=== PATIENT | female | born 2005 | race Caucasian/White ===

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

== ENCOUNTER 2024-02-26 11:08 | Outpatient (CLI) | payer BC, SELFPAY ==
[2024-02-26 12:07] LABS: Basophils Absolute Auto 0.02 K/mm3 (0.00-0.10); Basophils Percent Auto 0.3 % (0.0-1.0); Eosinophils Absolute Auto 0.06 K/mm3 (0.02-0.50); Eosinophils Percent Auto 0.9 % (1.0-6.0); Hematocrit 39.6 % (35.0-49.0); Hemoglobin 13.2 g/dL (12.0-15.0); Immature Granulocyte Absolute 0.03 K/mm3 (0.00-0.00); Immature Granulocyte Percent A 0.5 % (0.0-0.0); Lymphocytes Absolute Auto 1.71 K/mm3 (1.10-4.50); Mean Corpuscular HGB Conc 33.3 g/dL (32-36); Mean Corpuscular Hemoglobin 29.4 pg (27.0-31.0); Mean Corpuscular Volume 88.2 fL (78.0-102.0); Mean Platelet Volume 11.4 fl (9.2-11.8); Monocytes Absolute Auto 0.59 K/mm3 (0.10-0.90); Monocytes Percent Auto 9.3 % (2.0-11.0); Neutrophils Absolute Auto 3.92 K/mm3 (1.70-7.20); Platelet Count Result 256 K/mm3 (150-420); Red Blood Count 4.49 M/mm3 (4.20-5.40); Red Cell Distribution Width 12.8 % (11.6-14.4); White Blood Count 6.3 K/mm3 (4.8-10.8)
[2024-02-26 12:25] LABS: Alanine Aminotransferase 48 U/L (14-59); Albumin Level 3.7 g/dL (3.4-5.0); Alkaline Phosphatase 67 U/L (50-130); Anion Gap 10 mmol/L (4-12); Aspartate Amino Transferase 22 U/L (15-37); Bilirubin,Total 0.4 mg/dL (0.00-1.00); Blood Urea Nitrogen 11 mg/dL (7-18); Calcium 9.1 mg/dL (8.5-10.1); Carbon Dioxide 26 mmol/L (21-32); Chloride 106 mmol/L (98-108); Cholesterol 154 mg/dL (0-200); Estimated Glomerular Filt Rate > 60; Glucose 94 mg/dL (70-99); HDL Direct 44 mg/dL (40-60); LDL Cholesterol Calculated 97 mg/dL (<130); Osmolality Calculated 293 mOsm/kg (285-295); Potassium 3.8 mmol/L (3.5-5.1); Sodium 142 mmol/L (136-145); Total Protein 7.4 g/dL (6.4-8.2); Triglycerides 64 mg/dL (0-150)
[2024-02-26 12:26] LABS: Thyroid Stimulating Hormone Reflex 3.91 u/IU/mL (0.36-3.74)
[2024-02-26 12:27] LABS: Free T4 Free Thyroxine Reflex 1.03 ng/dL (0.76-1.46)
[2024-02-29 14:53] LABS: Insulin Level Total 24.3 uIU/mL
== END 2024-02-26 11:09 | disposition home or self-care (01) ==
LOC: CHSLAB 11:09
PROVIDERS: PCP Nurse Practitioner Family; Visit Provider Nurse Practitioner Family
DX: Z00.00 Encounter for general adult medical examination without abnormal findings (principal); Z83.3 Family history of diabetes mellitus; R53.83 Other fatigue
CPT/HCPCS: 36415; 80053; 80061; 83036; 83525; 84439; 84443; 85025

== ENCOUNTER 2024-11-01 15:34 | Outpatient (CLI) | payer BC, SELFPAY ==
--- OUTSIDE RECORDS SUMMARY | 2024-11-01 15:40 | XMS_ITS | Clinical Summary ---
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 Gender Identity Not on file Sexual Orientation Not on file Plan of Treatment Health Maintenance Due Date Last Done Comments Annual Physical 12/19/2007 HPV Vaccines (1 - 3-dose series) 12/19/2019 Meningococcal B Vaccine (1 o f 2 - Standard) 2020 Hepatitis C 2022 DTaP, Tdap and Td Vaccines ( 1 - Tdap) 12/19/2023 Hepatitis B Vaccines (1 of 3 - 19+ 3-dose series) 12/19/2023 COVID-19 Vaccine ( - 2023-2 5 season) 2024 Influenza Adult (#1) 2024 Meningococcal Vaccine Aged Out No james nancy eligible based on patient's age to complete this topic Pneumococcal Vaccine: Pediat rics (0 to 5 Years) and At-Risk Patients (6 to 64 Years) Aged Out No longer eligible b ased on patient's age to complete this topic RSV Immunizations Under 20 Months Aged Out No longer eligible based on patient's age to complete this topic
--- OUTSIDE RECORDS SUMMARY | 2024-11-01 15:40 | XMS_ITS | Patient Health Summary ---
Author Organization [facility] Address [address] [place] [address] Care Team Providers Care Rehabilitation Aide/Scheduler Name Role Phone Olaf Shane MD Primary Care Provider [phone] Note from [facility],non-owned Affiliates and Associated Physician Practices is amultiple site organization consisting of ambulatory clinics and hospital sitesin [place], [place], [place] and [place]. This disclosure is being madepursuant to the Care Everywhere program and may not contain all information available regarding this patient. Last updated 18.[facility] Allergies No known active allergies Medications Be aware that medications may not be up to date on this document. Always verify current medications with the patient. No known medications Active Problems Problem Noted Date Diagnosed Date Other closed fractures of distal end of radius ( alone) 08/28/2013 Abdominal pain, generalized 03/10/2012 Social History Tobacco Use Types Packs/Day Years Used Date Smoking Tobacco: Never Assessed Sex and Gender Information Value Date Recorded Sex Assigned at Not on file Gender Identity Not on file Sexual Orientation Not on file Last Filed Vital Signs Vital Sign Reading Time Taken Comments Blood Pressure - - Pulse - - Temperature - - Respiratory Rate - - Oxygen Saturation - - Inhaled Oxygen Concentration - - Weight 32.3 kg (71 lb 3.3 oz) 03/10/2012 9:10 AM CDT Height 123.7 cm (4' 0.7 ) 03/10/2012 9:10 AM CDT Body Mass Index 21.11 03/10/2012 9:10 AM CDT Body Mass Index Percentile 96.42% 03/10/2012 9:1 0 AM CDT Growth Chart: CDC (Girls, 2- 20 Years) Procedures * XR WRIST LEFT 2VW(Performed 08/28/2013) Performed for Wrist injury * IMAGING/RADIOLOGY/XRAY RESULTS ORDER(Performed 10/23/2012) * TISSUE TRANSGLUTAMINASE AB IGA(Performed 03/10/2012) Performed for Abdominal pain, generalized * LIPASE BLOOD(Performed 03/10/2012) Performed for Abdominal pain, generalized * IGA BLOOD(Performed 03/10/2012) Performed for Abdominal pain, generalized * C-REACTIVE PROTEIN(Performed 03/10/2012) Performed for Abdominal pain, generalized * COMPREHENSIVE METABOLIC PANEL(Performed 03/10/2012) Performed for Abdominal pain, generalized * CBC W AUTO DIFFERENTIAL(Performed 03/10/2012) Performed for Abdominal pain, generalized * AMYLASE BLOOD(Performed 03/10/2012) Performed for Abdominal pain, generalized Results * XR WRIST 2 VW LEFT (08/28/2013 1:37 PM STUNT PERFORMER) Anatomical Region Laterality Modality Wrist / Hand Radiographic Danna ging 08/28/2013 2:13 PM STUNT PERFORMER Impressions 08/28/2013 3:54 PM STUNT PERFORMER Healing distal left radius buckle fracture. D: Joel Tariq MD. Dictated by Joel Tariq on 08/28/2013 2:51 PM Chsa Akers, have personally reviewed the images and I agree with this report. Narrative 08/28/2013 3:54 PM STUNT PERFORMER EXAM: Left wrist, PA and lateral views DATE: 08/28/2013 HISTORY: Wrist injury COMPARISON: No prior studies are available for comparison. FINDINGS: There is a healing buckle fracture of the distal left radius in near anatomic alignment. There is other acute fracture. There are no other osseous abnormalities. There is no soft tissue swelling. Procedure Note Chas Back MD - 08/28/2013 EXAM: Left wrist, PA and lateral views DATE: 08/28/2013 HISTORY: Wrist injury COMPARISON: No prior studies are available for comparison. FINDINGS: There is a healing buckle fracture of the distal left radius in near anatomic alignment. There is other acute fracture. There are no other osseous abnormalities. There is no soft tissue swelling. IMPRESSION Healing distal left radius buckle fracture. D: Joel Tariq MD. Dictated by Joel Tariq on 08/28/2013 2:51 PM Chas Akers, have personally reviewed the images and I agree with this report. Nadir Dickinson PA-C DIAGNOSTIC IMAGING O RDERABLES * IMAGING/RADIOLOGY/XRAY RESULTS ORDER (10/23/2012 1:38 PM STUNT PERFORMER) Anatomical Region Laterality Modality Other Narrative 10/23/2012 1:38 PM STUNT PERFORMER Procedure Note Document, Scanned - 10/23/2012 1:38 PM CST Transcriptions Document, Scanned - 10/23/2012 1:38 PM CST Scanned Document IMAGING * TISSUE TRANSGLUTAMINASE AB IGA (03/10/2012 10:21 AM CDT) Pathologist [facility] TTG Antibody IgA <3 <5 U/mL [facility] Comment: Reference range: <5 U/mL Negative 5-8 U/mL Equivocal >8 U/mL Positive Test Performed at: [facility]/[address] [address] RENAY POSADAS MD Blood specimen (specimen) BLOOD SPECIMEN / Unknown 03/10/2012 10:21 AM CDT 03/10/2012 10:22 AM CDT Xochilt Li APRN-[facility] - SEROLOGY OR DERABLES Performing Organization Address [facility] de Phone Number [employer] [address] [place] [address] * C-REACTIVE PROTEIN (03/10/2012 10:21 AM CDT) Pathologist [facility] C-Reactive Protein <0.10 <0.80 mg/dL [facility] Comment: Verified by repeat analysis. Please be advised that patients taking Carboxypenicillins may exhibit falsely decreased C-Reactive Protein levels due to an analytical interference in this assay. Test Performed at: [facility] [address] [place] [address] JOSÉ MANUEL SHELL DO,MPH Blood specimen (specimen) BLOOD SPECIMEN / Unknown 03/10/2012 10:21 AM CDT 03/10/2012 10:22 AM CDT Xochilt Li APRN-HOME HEALTH NURSE LICENSED PRACTICAL LAB - CHEMISTRY O RDERABLES Performing Organization Address [facility] de Phone Number [employer] [address] [place] [address] * CBC W AUTO DIFFERENTIAL (03/10/2012 10:21 AM CDT) Pathologist [facility] White Blood Cell Count 5.7 4.5 - 13.5 Thousand/u L [facility] RBC 4.25 4.00 - 5.20 Million/uL [facility] Hemoglobin 12.5 11.5 - 15.5 g/dL [facility] Hematocrit 37.5 35.0 - 45.0 % [facility] MCV 88.1 77.0 - 95.0 fL [facility] MCH 29.4 25.0 - 33.0 pg [facility] MCHC 33.3 31.0 - 36.0 g/dL [facility] RDW 14.0 11.0 - 15.0 % [facility] Platelet Count 281 140 - 400 Thousand/u L [facility] Neutrophil Absolute 3032 1500 - 8000 cells/uL [facility] Lymphocytes Absolute 2035 1500 - 6500 cells/uL [facility] Absolute Monocytes 570 200 - 900 cells/uL [facility] Eosinophils Absolute 46 15 - 500 cells/uL [facility] Basophils Absolute 17 0 - 200 cells/uL [facility] Granulocytes % 53.2 % [facility] Lymphocytes % 35.7 % [facility] Monocytes % 10.0 % [facility] Eosinophils % 0.8 % [facility] Basophils % 0.3 % [facility] Comment: Test Performed at: [facility] [address] [place] [address] JOSÉ MANUEL SHELL DO,MPH Blood specimen (specimen) BLOOD SPECIMEN / Unknown 03/10/2012 10:21 AM CDT 03/10/2012 10:22 AM CDT Xochilt Li PARALEGAL SECRETARY-HOME HEALTH NURSE LICENSED PRACTICAL LAB - HEMATOLOGY ORDERABLES [facility] [address] [place] [address] * (ABNORMAL) COMPREHENSIVE METABOLIC PANEL (03/10/2012 10:21 AM CDT) [facility] Glucose 84 65 - 99 mg/dL [facility] Comment: Fasting reference interval BUN 16 7 - 20 mg/dL [facility] Creatinine 0.47 0.20 - 0.73 mg/dL [facility] Comment: Patient is <18 years old. Unable to calculate eGFR. BUN/Creatinine Ratio NOT APPLICABLE 6 - 22 (calc) [facility] Sodium 141 135 - 146 mmol/L [facility] Potassium 4.4 3.8 - 5.1 mmol/L [facility] Chloride 107 98 - 110 mmol/L [facility] CO2 23 21 - 33 mmol/L [facility] Calcium 9.8 8.9 - 10.4 mg/dL [facility] Protein Total 6.5 6.3 - 8.2 g/dL [facility] Albumin 4.6 3.6 - 5.1 g/dL [facility] Globulin Total 1.9(L) 2.0 - 3.8 g/dL (calc) [facility] Albumin/Globuli n Ratio 2.4(H) 1.0 - 2.1 (calc) [facility] Bilirubin Total 0.3 0.2 - 0.8 mg/dL [facility] Alkaline Phosphatase 276 184 - 415 U/L [facility] AST 24 12 - 32 U/L [facility] ALT 18 8 - 24 U/L [facility] Comment: Test Performed at: [place] [address] JOSÉ MANUEL SHELL DO,MPH Blood specimen (specimen) BLOOD SPECIMEN / Unknown 03/10/2012 10:21 AM CDT 03/10/2012 10:22 AM CDT [facility] RDERABLES Performing Organization Address [facility] de Phone Number [facility] [address] [place] [address] * LIPASE BLOOD (03/10/2012 10:21 AM CDT) Lipase 30 7 - 60 U/L [facility] Comment: REPORT COMMENT: FASTING Test Performed at: [place] [address] JOSÉ MANUEL SHELL DO,MPH Blood specimen (specimen) BLOOD SPECIMEN / Unknown 03/10/2012 10:21 AM CDT 03/10/2012 10:22 AM CDT [facility]ilt [facility] - CHEMISTRY O RDERABLES Performing Organization Address [facility] de Phone Number [facility] [id number] [place] [address] * AMYLASE BLOOD (03/10/2012 10:21 AM CDT) Amylase 35 21 - 101 U/L [facility] Comment: Test Performed at: [facility] [place] [address] JOSÉ MANUEL SHELL DO,MPH Blood specimen (specimen) BLOOD SPECIMEN / Unknown 03/10/2012 10:21 AM CDT 03/10/2012 10:22 AM CDT Xochilt Ortega Guillermo PARALEGAL SECRETARY-HOME HEALTH NURSE LICENSED PRACTICAL LAB - CHEMISTRY O RDERABLES Performing Organization Address [facility] de Phone Number [facility] [address] [place] [address] * IGA BLOOD (03/10/2012 10:21 AM CDT) IgA 67 41 - 368 mg/dL [facility] Comment: Test Performed at: [facility] [address] [facility] [place] [address] JOSÉ MANUEL SHELL DO,MPH Blood specimen (specimen) BLOOD SPECIMEN / Unknown 03/10/2012 10:21 AM CDT 03/10/2012 10:22 AM CDT Xochilt Li PARALEGAL SECRETARY-HOME HEALTH NURSE LICENSED PRACTICAL LAB - CHEMISTRY O RDERABLES Performing Organization Address [facility] de Phone Number [facility] [address] [place] [phone] Care Teams Rehabilitation Aide/Scheduler Relationship Specialty Start Date End Date Olaf Shane [place] [address] PCP - General Pediatrics 08/28/13
--- OUTSIDE RECORDS SUMMARY | 2024-11-01 15:40 | XMS_ITS | Referral Summary ---
Author Organization [facility] [employer] Address [address] [place] [address] Care Team Providers Care Billposting Supervisor Name Role Phone Olaf Shane MD Primary Care Provider [phone] Source Comments [facility] [employer],non-owned Affiliates and Associated Physician Practices is amultiple site organization consisting of ambulatory clinics and hospital sitesin [place], [place], [place] and [place]. This disclosure is being madepursuant to the Care Everywhere program and may not contain all information available regarding this patient. Last updated 18.[employer] [facility] Allergies No known active allergies Medications Be [...] Height 123.7 cm (4' 0.7 ) 03/10/2012 9 :10 AM CDT Body Mass Index 21.11 03/10/2012 9:10 AM CDT Body Mass Index Percentile 96.42% 03/10/2012 9:1 0 AM CDT Growth Chart: [facility] (Girls, 2- 20 Years) Plan of Treatment Not on file Care Teams Billposting Supervisor Relationship Specialty Start Date End Date Olaf Shane MD [address] [place] [id number] PCP - General Pediatrics 08/28/13
--- OUTSIDE RECORDS SUMMARY | 2024-11-01 15:40 | XMS_ITS | Clinical Summary ---
Author Organization [facility] [email or web address] Address [address] [place] [address] Care Team Providers Care Masticator Name Role Phone Olaf Shane MD Primary Care Provider [phone] Source Comments [facility] [email or web address],non-owned Affiliates and Associated Physician Practices is amultiple site organization consisting of ambulatory clinics and hospital sitesin [place], [place], [place] and [place]. This disclosure is being madepursuant to the Care Everywhere program and may not contain all information available regarding this patient. Last updated 18.[email or web address] Allergies No known active allergies Medications Be [...] Growth Chart: CDC (Girls, 2- 20 Years) Plan of Treatment Health Maintenance Due Date Last Done Comments HIV SCREENING 12/19/2019 HPV VACCINE (1 - 3-dose series) 12/19/2019 CHLAMYDIA/GONORRHEA SCREENING 2020 MENINGOCOCCAL (Group B) VACC INE (1 of 2 - Standard) 2020 HEPATITIS C SCREENING 12/14/2022 DTAP/TDAP/TD VACCINES (1 - Tdap) 12/19/2023 HEPATITIS B VACCINE (1 of 3 - 19+ 3-dose series) 12/19/2023 COVID-19 VACCINE (1 - 2023-2 5 season) 2024 INFLUENZA VACCINE (#1) 2024 DEPRESSION SCREENING 09/13/2024 ZOSTER VACCINE (1 of 2) 2054 HIB VACCINE Aged Out No longer eligi ble based on patient's age to complete this topic MENINGOCOCCAL VACCINE Aged Out No james nancy eligible based on patient's age to complete this topic PNEUMOCOCCAL VACCINE Aged Out No long er eligible based on patient's age to complete this topic Care Teams Masticator Relationship Specialty Start Date End Date Olaf Shane MD [address] [place] [address] PCP - General Pediatrics 08/28/13
[2024-11-01 16:20] LABS: Thyroid Stimulating Hormone Reflex 4.52 u/IU/mL (0.36-3.74)
[2024-11-01 16:25] LABS: Ferritin 50 ng/mL (8-252); Iron 99 ug/dL (50-170); Percent Iron Saturation 25 % (12-57)
[2024-11-01 17:00] LABS: Free T4 Free Thyroxine Reflex 0.98 ng/dL (0.76-1.46)
[2024-11-03 03:28] LABS: Vitamin D 25 Hydroxy 8 ng/mL (30-100)
== END 2024-11-01 15:35 | disposition home or self-care (01) ==
LOC: CHSLAB 15:38
PROVIDERS: PCP Nurse Practitioner Family; Visit Provider Nurse Practitioner Family
DX: R79.89 Other specified abnormal findings of blood chemistry (principal); D64.9 Anemia, unspecified; R53.83 Other fatigue
CPT/HCPCS: 36415; 82306; 82728; 83540; 83550; 84439; 84443

== ENCOUNTER 2025-01-05 11:33 | Outpatient (CLI) | payer BC, SELFPAY ==
--- OUTSIDE RECORDS SUMMARY | 2025-01-05 11:51 | XMS_ITS | Clinical Summary ---
Author Organization [facility] [employer] Address [address] [place] [address] Care Team Providers Care Vacuum Cooker Operator Name Role Phone Olaf Shane MD Primary Care Provider [phone] Source Comments [facility] [employer],non-owned Affiliates and Associated Physician Practices is amultiple site organization consisting of ambulatory clinics and hospital sitesin [place], [place], [place] and [place]. This disclosure is being madepursuant to the Care Everywhere program and may not contain all information available regarding this patient. Last updated 18.[employer] Allergies No known active allergies Medications * Be aware that medications may not be up to date on this document. Alwaysverify current medications with the patient. 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 Gender Identity Not on file Sexual Orientation [...] Mass Index 21.11 03/10/2012 9:10 AM CDT Plan of Treatment Health Maintenance Due Date Last Done Comments HIV SCREENING 12/19/2019 HPV VACCINE (1 - 3-dose series) 12/19/2019 CHLAMYDIA/GONORRHEA SCREENING 2020 MENINGOCOCCAL (Group B) VACC INE SHARED DECISION-MAKING (1 of 2 - Standard) 2020 HEPATITIS C SCREENING 12/14/2022 DTAP/TDAP/TD VACCINES (1 - Tdap) 12/19/2023 HEPATITIS B VACCINE (1 of 3 - 19+ 3-dose series) 12/19/2023 COVID-19 VACCINE (1 - 2023-2 5 season) 2024 DEPRESSION SCREENING 09/13/2024 INFLUENZA VACCINE (Season Ended) 2025 ZOSTER VACCINE (1 of 2) 2054 HIB VACCINE Aged Out No longer eligi ble based on patient's age to complete this topic MENINGOCOCCAL GROUPS A/C/Y/W VACCINE Aged Out No longer eligible b ased on patient's age to complete this topic PNEUMOCOCCAL VACCINE Aged Out No long er eligible based on patient's age to complete this topic Insurance [facility] Care Teams Vacuum Cooker Operator Relationship Specialty Start Date End Date Olaf Shane MD [address] [place] [phone] PCP - General Pediatrics 08/28/13
--- OUTSIDE RECORDS SUMMARY | 2025-01-05 11:51 | XMS_ITS | Clinical Summary ---
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
[2025-01-05 13:21] LABS: Thyroid Stimulating Hormone 3.33 uIU/mL (0.36-3.74)
[2025-01-06 06:53] LABS: Vitamin D 25 Hydroxy 56 ng/mL (30-100)
== END 2025-01-05 11:34 | disposition home or self-care (01) ==
LOC: CHSLAB 11:34
PROVIDERS: PCP Nurse Practitioner Family; Visit Provider Nurse Practitioner Family
DX: E55.9 Vitamin D deficiency, unspecified (principal); R53.83 Other fatigue; E03.8 Other specified hypothyroidism
CPT/HCPCS: 36415; 82306; 84443

== ENCOUNTER 2025-01-23 12:54 | Outpatient (RCR) | payer BC, SELFPAY ==
[2025-01-23 13:01] VITALS: BMI 40.1
== END 2025-04-11 10:54 | disposition home or self-care (01) ==
LOC: ANHDMC 12:54
PROVIDERS: PCP Nurse Practitioner Family; Visit Provider Nurse Practitioner Family
DX: Z68.39 Body mass index [BMI] 39.0-39.9, adult (principal); Z71.3 Dietary counseling and surveillance
CPT/HCPCS: 97802

== ENCOUNTER 2025-04-25 13:00 | Outpatient (CLI) | payer BC, SELFPAY ==
--- OUTSIDE RECORDS SUMMARY | 2025-04-25 13:05 | XMS_ITS | Clinical Summary ---
Author Organization [facility] [employer] Address [address] [place] [address] Care Team Providers Care Technology Intern Name Role Phone Olaf Shane MD Primary Care Provider [phone] Source Comments [facility] [employer],non-owned Affiliates and Associated Physician Practices is amultiple site organization consisting of ambulatory clinics and hospital sitesin [place], [place], [place] and [place]. This disclosure is being madepursuant to the Care Everywhere program and may not contain all information available regarding this patient. 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 Gender Identity Not on file Sexual Orientation Not on file Last Filed Vital Signs Vital Sign Reading Time Taken Comments Blood Pressure - - Pulse - - Temperature - - Respiratory Rate - - Oxygen Saturation - - Inhaled Oxygen Concentration - - Weight 32.3 kg (71 lb 3.3 oz) 03/10/2012 9:10 AM CDT Height 123.7 cm (4' 0.7) 03/10/2012 9:10 AM CDT Body Mass Index [...] season) 2024 DEPRESSION SCREENING 09/13/2024 INFLUENZA VACCINE (#1) 2025 ZOSTER VACCINE (1 of 2) 2054 HIB VACCINE Aged Out No longer eligi ble based on patient's age to complete this topic MENINGOCOCCAL GROUPS A/C/Y/W VACCINE Aged Out No longer eligible b ased on patient's age to complete this topic PNEUMOCOCCAL VACCINE Aged Out No long er eligible based on patient's age to complete this topic Insurance [facility] Care Teams Technology Intern Relationship Specialty Start Date End Date Olaf Shane MD [address] [place] [phone] PCP - General Pediatrics 08/28/13
--- OUTSIDE RECORDS SUMMARY | 2025-04-25 13:05 | XMS_ITS | Clinical Summary ---
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
[2025-04-25 16:12] LABS: Thyroid Stimulating Hormone Reflex 2.380 uIU/mL (0.465-4.68)
== END 2025-04-25 13:01 | disposition home or self-care (01) ==
LOC: CHSLAB 13:03
PROVIDERS: PCP Nurse Practitioner Family; Visit Provider Nurse Practitioner Family
DX: E03.8 Other specified hypothyroidism (principal)
CPT/HCPCS: 36415; 84443

== ENCOUNTER 2025-05-02 12:40 | Outpatient (CLI) | payer BC, SELFPAY ==
--- NOTE | ~2025-05-02 | US_ITS ---
EXAMINATION: US pelvic complete INDICATION: Severe pain with cycles Comparison:No prior studies for comparison. TECHNIQUE: Multiple transabdominal sonographic images of the pelvis performed. FINDINGS: The uterus measures 8.9 x 5 x 2.8 cm. The endometrial complex measures 10 mm. The right ovary measures 3 x 2.1 x 2.5 cm and the left ovary measures 4 x 2.3 x 2.2 cm. There are small follicles in each ovary. Normal doppler signal in both ovaries. There is no free fluid in the pelvis. There are no abnormal masses seen on either side. IMPRESSION: 1. Unremarkable pelvic ultrasound. Reviewed, dictated and finalized at location A.
--- OUTSIDE RECORDS SUMMARY | 2025-05-02 12:44 | XMS_ITS | Clinical Summary ---
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
--- OUTSIDE RECORDS SUMMARY | 2025-05-02 12:44 | XMS_ITS | Clinical Summary ---
Author Organization [facility] [employer] Address [address] [place] [address] Care Team Providers Care Mattress Maker Name Role Phone Olaf Shane MD Primary Care Provider [phone] Source Comments [facility] [employer],non-owned Affiliates and Associated Physician Practices is amultiple site organization consisting of ambulatory clinics and hospital sitesin [place], [place], [place]. This disclosure is being madepursuant to the Care Everywhere program and may not contain all information available regarding this patient. 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
== END 2025-05-02 12:41 | disposition home or self-care (01) ==
LOC: CHSIMG 12:42
PROVIDERS: PCP Nurse Practitioner Family; Visit Provider Nurse Practitioner Family
DX: N94.6 Dysmenorrhea, unspecified (principal)
CPT/HCPCS: 76856

== ENCOUNTER 2025-09-10 11:40 | Outpatient (CLI) | payer BC, SELFPAY ==
--- OUTSIDE RECORDS SUMMARY | 2025-09-10 12:19 | XMS_ITS | Clinical Summary ---
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
--- OUTSIDE RECORDS SUMMARY | 2025-09-10 12:19 | XMS_ITS | Clinical Summary ---
Author Organization [facility] Address [address] [place] [address] Care Team Providers Care Rf Engineer Name Role Phone Olaf Shane MD Primary Care Provider [phone] Source Comments [facility],non-owned Affiliates and Associated Physician Practices is amultiple site organization consisting of ambulatory clinics and hospital sitesin [place], [place], [place] and [place]. This disclosure is being madepursuant to the Care Everywhere program and may not contain all information available regarding this patient. 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 Gender Identity Not on file Sexual Orientation [...] of 3 - 19+ 3-dose series) 12/19/2023 DEPRESSION SCREENING 09/13/2024 COVID-19 VACCINE (1 - 2024-2 6 season) 2025 INFLUENZA VACCINE (#1) 2025 ZOSTER VACCINE (1 of 2) 2054 HIB VACCINE Aged Out No longer eligi ble based on patient's age to complete this topic MENINGOCOCCAL GROUPS A/C/Y/W VACCINE Aged Out No longer eligible b ased on patient's age to complete this topic PNEUMOCOCCAL VACCINE Aged Out No long er eligible based on patient's age to complete this topic Insurance [facility] Care Teams Rf Engineer Relationship Specialty Start Date End Date Olaf Shane MD [address] [place] [id number] PCP - General Pediatrics 08/28/13
[2025-09-10 12:50] LABS: Thyroid Stimulating Hormone Reflex 2.240 uIU/mL (0.465-4.68)
== END 2025-09-10 11:41 | disposition home or self-care (01) ==
LOC: CHSLAB 11:41
PROVIDERS: PCP Nurse Practitioner Family; Visit Provider Nurse Practitioner Family
DX: E03.8 Other specified hypothyroidism (principal)
CPT/HCPCS: 36415; 84443